=== PATIENT | male | born 1950 | race Caucasian/White ===

== ENCOUNTER 2017-11-18 09:36 | Outpatient (CLI) | payer BC ==
--- NOTE | 2017-11-18 12:05 | RAD ---
FRONTAL AND LATERAL IMAGING OF THE CHEST: 11/18/2017 HISTORY: Dyspnea. COMPARISON: 03/01/2009 FINDINGS: There is pulmonary hyperinflation and increased linear interstitial density in the perihilar regions and lung bases, stable. No pneumothorax, pleural fluid, lobar consolidation, or alveolar edema. There is rounded increased density overlying the cardiac silhouette, just to the left of midline, sta ble when compared to the 03/01/2009 exam. This may be aortic in nature and could represent tortuosit y of the descending thoracic aorta versus a descending thoracic aortic aneurysm. Recommend a CT exam ination of the chest to further assess. IMPRESSION: 1. Interstitial density and pulmonary hyperinflation suggest chronic obstructive pulmonary disease i n the proper clinical setting. 2. Rounded increased soft tissue density overlies the cardiac silhouette, which may be aortic in ewa ure. Recommend CT chest with intravenous contrast. CODE T POS: JUSTYN
== END 2017-11-18 09:37 | disposition home or self-care (01) ==
LOC: RAD 09:36
PROVIDERS: ATTEND Internal Medicine
DX: R06.00 Dyspnea, unspecified (principal)
CPT/HCPCS: 71046

== ENCOUNTER 2018-05-09 20:30 | Outpatient (CLI) | payer BC | END 2018-05-09 20:31 | disposition home or self-care (01) | LOC: SLEEPLAB 20:30 | PROVIDERS: ATTEND Internal Medicine | DX: G47.33 Obstructive sleep apnea (adult) (pediatric) (principal); R51 Headache; K21.9 Gastro-esophageal reflux disease without esophagitis; R06.83 Snoring; I11.0 Hypertensive heart disease with heart failure; I50.9 Heart failure, unspecified; R35.1 Nocturia; E66.9 Obesity, unspecified; Z68.39 Body mass index [BMI] 39.0-39.9, adult | CPT/HCPCS: 95811 ==

== ENCOUNTER 2020-01-11 08:25 | Outpatient (CLI) | payer MEDICARE, BC ==
--- NOTE | 2020-01-11 08:53 | ULT ---
Bilateral renal ultrasound CLINICAL INDICATION: Acute renal failure COMPARISON: None FINDINGS: Right kidney: There is no evidence of a renal mass, renal calculus, or hydronephrosis seen. The right kidney measures 11.2 cm x 5.4 cm. Left kidney: There is no evidence of a renal mass, renal calculus, or hydronephrosis seen.The left ki dney measures 12 cm x 5.4 cm. Urinary bladder: Normal in appearance for degree of distention. Color flow evaluation does demonstrat e the ureteral jets bilaterally. Urinary bladder volume is 113.6 mL. IMPRESSION: Normal-appearing bilateral kidneys without evidence of hydronephrosis.
== END 2020-01-11 08:26 | disposition home or self-care (01) ==
LOC: BICULT 08:25
PROVIDERS: ATTEND Internal Medicine Nephrology
DX: N17.9 Acute kidney failure, unspecified (principal)
CPT/HCPCS: 76770

== ENCOUNTER 2021-02-09 11:46 | Outpatient (CLI) | payer MEDICARE, BC | END 2021-02-09 11:47 | disposition home or self-care (01) | LOC: BICRAD 11:46 | PROVIDERS: ATTEND Internal Medicine Critical Care Medicine | DX: R06.00 Dyspnea, unspecified (principal); R91.8 Other nonspecific abnormal finding of lung field | CPT/HCPCS: 71046 ==

== ENCOUNTER 2023-07-09 15:08 | Outpatient (CLI) | payer MEDICARE, BC | END 2023-07-09 15:09 | disposition home or self-care (01) | LOC: BICRAD 15:08 | PROVIDERS: ATTEND Family Medicine | DX: J06.9 Acute upper respiratory infection, unspecified (principal) | CPT/HCPCS: 71046 ==

== ENCOUNTER 2024-08-24 19:50 | Emergency (ER) | payer MEDICARE ==
[2024-08-24] MEDS ORDERED: Ondansetron PF 4 MG/2 ML Vial ONE (20:26)
[2024-08-24] MEDS ORDERED: Meclizine HCl 25 MG TAB ONE (20:26)
[2024-08-24 20:41] LABS: #Basophils 0.06 10x3/uL (0.0-0.2); %Basophils 0.4 % (0.0-1.0); %Eosinophils 1.6 % (0.0-10.0); %Lymphocytes 18.9 % (21.0-51.0); %Monocytes 7.6 % (0.0-10.0); %Neutrophils 71.1 % (42.0-75.0); Hematocrit 42.9 % (42.0-52.0); Hemoglobin 15.1 g/dL (14.0-18.0); Mean Corpuscular HGB CONC 35.2 g/dL (32.0-36.0); Mean Corpuscular Hemoglobin 32.1 pg (27.0-31.0); Mean Corpuscular Volume 91.3 fL (78.0-98.0); Mean Platelet Volume 10.6 fL (7.4-10.4); Platelet Count 208 10x3/uL (130-400); RBC Distribution Width 11.9 % (11.5-14.5)
[2024-08-24 20:51] LABS: ALT (SGPT) 23 U/L (8-55); AST (SGOT) 21 U/L (5-34); Albumin 4.1 g/dL (3.4-4.8); Alkaline Phosphatase 65 U/L (40-110); Anion Gap 16 mmol/L (10-20); BUN (Urea Nitrogen) 16 mg/dL (8.4-25.7); Bilirubin, Total 0.6 mg/dL (0.2-1.2); Calc. Creatinine Clearance 0 mL/min (70-130); Carbon Dioxide 21 mmol/L (23-31); Chloride 107 mmol/L (98-107); Estimated GFR 66; Globulin 3.3 g/dL (2.4-3.5); Glucose 127 mg/dL (83-110); Potassium 3.7 mmol/L (3.5-5.1); Protein, Total 7.4 g/dL (5.8-8.1); Sodium 140 mmol/L (136-145)
[2024-08-24 20:56] LABS: Troponin I Less than 0.010 ng/mL (< 0.028)
== END 2024-08-24 22:48 | disposition home or self-care (01) ==
LOC: ERS 19:50
DX: R42 Dizziness and giddiness (principal); R11.2 Nausea with vomiting, unspecified
CPT/HCPCS: 70450; 80053; 83735; 84484; 85025; 93005; J2405; 96361; 96374

== ENCOUNTER 2024-10-02 12:20 | Outpatient (CLI) | payer MEDICARE ==
[2024-10-02] MEDS ORDERED: Magnevist 469MG/ML 20 ML VIAL ONE (13:08)
== END 2024-10-02 12:21 | disposition home or self-care (01) ==
LOC: BICMRI 12:20
PROVIDERS: ATTEND Specialist
DX: H90.3 Sensorineural hearing loss, bilateral (principal)
CPT/HCPCS: 36415; 70553; 82565